=== PATIENT | female | born 1940 | race Caucasian/White ===

== ENCOUNTER 2016-05-15 22:25 | Observation (INO) | payer MEDICARE, MEDICAID ==
[~2016-05-15] VITALS: Ht 160 cm; Wt 59.1 kg
[~2016-05-15 22:25] MED LIST: ATEN100T PO; ATOR40TA16 PO; CYAN1000P IM; NIFE15TA PO
[2016-05-15 22:26] VITALS: PULSE 87; RESP 10; RESP 18; O2SAT 92
[2016-05-15 22:33] VITALS: BP 199/83; PULSE 83; RESP 28; O2SAT 92
[2016-05-15] MEDS ORDERED: SODIUM CHLORIDE 0.9% FLUSH 5 ML FLUSH IVF PRN (22:45)
[2016-05-15] MEDS ORDERED: methylPREDNISolone SOD SUCC 125 MG/2 ML VIAL IVP ONE (22:45)
[2016-05-15] MEDS ORDERED: ASPIRIN 81 MG CHEW TAB PO ONE (22:45)
[2016-05-15] MEDS ORDERED: SODIUM CHLORID 0.9% 500 ML INJ 500 ML IV ONE (22:45)
[2016-05-15] MEDS: RESP: ALBUTEROL 2.5 MG/IPRATROPIUM 0.5 MG NEB (SCH) INH ×2 (22:50→22:51)
[2016-05-15 23:04] VITALS: RESP 22; O2SAT 93
[2016-05-15 23:08] LABS: BLOOD GAS CARBOXYHEMOGLOBIN 1.1 % (0-4); BLOOD GAS HCO3 27 mmol/L (22-26); BLOOD GAS METHEMOGLOBIN 0.3 % (0-2); BLOOD GAS O2 HGB SATURATION 90 % (90-100); BLOOD GAS OXYGEN CONTENT 15.7 Vol % (12.0-20.0); BLOOD GAS PCO2 45 mmHg (38-42); BLOOD GAS PO2 60 mmHG (61-120); BLOOD GAS TOTAL HGB 12.4 G/DL (12.0-16.0); CRITICAL VALUE NO; DRAW SITE RT RADIAL; FIO2 21 %; NUMBER OF ARTERIAL PUNCTURES 1; OXYGEN DEVICE ROOM AIR; STAT YES; TEMP CORR TO 98.6; ULNAR PULSE PRESENT
--- NOTE | 2016-05-15 23:09 | PD ---
HPI Chief Complaint: Respiratory Distress Time Seen by Provider: 22:33 Travel History International Travel<30 days: No (mar 31, 2016; [email or web address] ) Contact w/Intl Traveler<30days: No Traveled to known affect area: No History of Present Illness HPI Patient is a 75-year-old female with history of hypertension and hyperlipidemia who presents to emergency room with complaints of shortness of breath as well as chest pain. Patient reports that she has been having increased shortness of breath since yesterday, reports that she has been wheezing and has had a productive cough. Patient denies any fevers or chills, nights history of COPD or asthma. Reports no history of smoking in the past. Patient reports that this afternoon, she began to have increased chest pain. Reports the chest pain is located to her substernal, reports that chest pain radiates to her left shoulder and her back. Patient reports that chest pain feels like a sharp and stabbing sensation, reports that chest pain is exacerbated by taking a deep breath. Patient denies diaphoresis, or palpitations or nausea or vomiting with symptoms. Reports no history of coronary disease or [place] in the past. Reports no history of chest pain in the past. Patient denies any sick contacts. Patient does admit reports that she did travel to [place] for 16 days and came home on March 23, 2016. Patient with no history of PE or DVT PFSH Past Medical History High Cholesterol: Yes Hypertension: Yes Past Surgical History Surgical History: No Previous Surgery Social History Alcohol Use: No Tobacco Use: No Substance Use: No Allergies-Medications (Allergen,Severity, Reaction): Coded Allergies: No Known Allergies (Unverified , 04/24/16) Reported Meds & Prescriptions Reported Meds & Active Scripts Active Reported Nifedical XL (Nifedipine) 60 Mg Tab 30 Mg PO DAILY Atenolol 100 Mg Tab 100 Mg PO DAILY Review of Systems General / Constitutional: No: Fever, Chills Cardiovascular: Positive: Chest Pain or Discomfort Respiratory: Positive: Cough, Shortness of Breath, Wheezing Physical Exam Narrative GENERAL: Mild distress SKIN: Warm and dry. HEAD: Atraumatic. Normocephalic. EYES: Pupils equal and round. No scleral icterus. No injection or drainage. ENT: No nasal bleeding or discharge. Mucous membranes pink and moist. NECK: Trachea midline. No JVD. CARDIOVASCULAR: Regular rate and rhythm. No murmur appreciated. RESPIRATORY: Patient with scattered wheezing bilaterally GASTROINTESTINAL: Abdomen soft, non-tender, nondistended. Hepatic and splenic margins not palpable. MUSCULOSKELETAL: No obvious deformities. No clubbing. No cyanosis. No edema. NEUROLOGICAL: Awake and alert. No obvious cranial nerve deficits. Motor grossly within normal limits. Normal speech. PSYCHIATRIC: Appropriate mood and affect; insight and judgment normal. Data Data Last Documented VS Vital Signs Date Time Temp Pulse Resp B/P Pulse Ox O2 Delivery O2 Flow Rate FiO2 05/16/16 00:03 96 22 183/88 93 Room Air Orders Electrocardiogram (05/15/16 22:40) B-Type Natriuretic Peptide (05/15/16 22:40) Ckmb (Isoenzyme) Profile (05/15/16 22:40) Complete Blood Count With Diff (05/15/16 22:40) Comprehensive Metabolic Panel (05/15/16 22:40) Magnesium (Mg) (05/15/16 22:40) Prothrombin Time / Inr (Pt) (05/15/16 22:40) Act Partial Throm Time (Ptt) (05/15/16 22:40) Troponin I (05/15/16 22:40) Lipase (05/15/16 22:40) Chest, Single Ap (05/15/16 22:40) Ecg Monitoring (05/15/16 22:40) Bilateral Bp Monitoring (05/15/16 22:40) Iv Access Insert/Monitor (05/15/16 22:40) Oximetry (05/15/16 22:40) Oxygen Administration (05/15/16 22:40) Aspirin Chew (Aspirin Chew) (05/15/16 22:45) Sodium Chloride 0.9% Flush (Ns Flush) (05/15/16 22:45) Sodium Chlorid 0.9% 500 Ml Inj (Ns 500 M (05/15/16 22:45) Arterial Blood Gas (Abg) (05/15/16 22:40) Influenzae A/B Antigen (05/15/16 22:40) Blood Culture (05/15/16 22:40) Methylprednisolone So Succ Inj (Solumedr (05/15/16 22:45) Albuterol-Ipratropium Neb (Duoneb Neb) (05/15/16 22:45) Ct Pulmonary Angiogram (05/16/16 ) Iohexol 350 Inj (Omnipaque 350 Inj) (05/16/16 00:51) Admit Order (Ed Use Only) (05/16/16 02:02) Labs Laboratory Tests Test 05/15/16 22:55 White Blood Count 7.4 TH/MM3 Red Blood Count 4.10 MIL/MM3 Hemoglobin 11.6 GM/DL Hematocrit 34.5 % Mean Corpuscular Volume 84.2 FL Mean Corpuscular Hemoglobin 28.2 PG Mean Corpuscular Hemoglobin 33.5 % Concent Red Cell Distribution Width 14.4 % Platelet Count 283 TH/MM3 Mean Platelet Volume 8.1 FL Neutrophils (%) (Auto) 64.2 % Lymphocytes (%) (Auto) 18.5 % Monocytes (%) (Auto) 11.0 % Eosinophils (%) (Auto) 5.9 % Basophils (%) (Auto) 0.4 % Neutrophils # (Auto) 4.8 TH/MM3 Lymphocytes # (Auto) 1.4 TH/MM3 Monocytes # (Auto) 0.8 TH/MM3 Eosinophils # (Auto) 0.4 TH/MM3 Basophils # (Auto) 0.0 TH/MM3 CBC Comment DIFF FINAL Differential Comment Prothrombin Time 10.6 SEC Prothromb Time International 1.0 RATIO Ratio Activated Partial 28.5 SEC Thromboplast Time Blood Gas Puncture Site RT RADIAL Blood Gas Patient Temperature 98.6 Blood Gas HCO3 27 mmol/L Blood Gas Base Excess 3.0 mmol/L Blood Gas Oxygen Saturation 90 % Arterial Blood pH 7.41 Arterial Blood Partial 45 mmHg Pressure CO2 Arterial Blood Partial 60 mmHG Pressure O2 Arterial Blood Oxygen Content 15.7 Vol % Arterial Blood 1.1 % Carboxyhemoglobin Arterial Blood Methemoglobin 0.3 % Blood Gas Hemoglobin 12.4 G/DL Oxygen Delivery Device ROOM AIR Blood Gas Inspired Oxygen 21 % Sodium Level 136 MEQ/L Potassium Level 4.1 MEQ/L Chloride Level 99 MEQ/L Carbon Dioxide Level 29.3 MEQ/L Anion Gap 8 MEQ/L Blood Urea Nitrogen 16 MG/DL Creatinine 0.66 MG/DL Estimat Glomerular Filtration 87 ML/MIN Rate Random Glucose 130 MG/DL Calcium Level 9.4 MG/DL Magnesium Level 2.2 MG/DL Total Bilirubin 0.3 MG/DL Aspartate Amino Transf 17 U/L (AST/SGOT) Alanine Aminotransferase 22 U/L (ALT/SGPT) Alkaline Phosphatase 119 U/L Total Creatine Kinase 83 U/L Troponin I LESS THAN 0.02 NG/ML Total Protein 8.6 GM/DL Albumin 3.9 GM/DL Lipase 201 U/L B-Type Natriuretic Peptide 67 PG/ML MDM Medical Decision Making Medical Screen Exam Complete: Yes Emergency Medical Condition: Yes Interpretation(s) EKG at 2244: Normal sinus at 83 beats for minute, QT/QTC 361/400, no acute ST-T wave changes Vital Signs Date Time Temp Pulse Resp B/P Pulse Ox O2 Delivery O2 Flow Rate FiO2 05/15/16 22:33 83 28 199/83 92 05/15/16 22:26 87 18 92 Differential Diagnosis PE, pneumonia, asthma exacerbation, acute bronchitis, ACS, arrhythmia, electrolyte abnormality Narrative Course Patient is a 75-year-old female who presents to emergency room with complaints of shortness of breath and chest pain. She had onset of shortness of breath yesterday, reports that her shortness of breath associated with wheezing and productive cough. Reports that today, she began to have increased chest pain around noon time. Chest pain was located to her substernal, reports that it radiates her shoulder and her back. Pain is sharp and stabbing in nature, associated with shortness of breath. Chest pain is worse with taking a deep breath. On exam, patient is having increased wheezing, nebs as well as steroids ordered. Patient is complaining of chest pain, EKG ordered. EKG with normal sinus rhythm with no acute ST or T-wave changes. Patient was placed on a hand shaper. Labs as well as x-ray chest ordered. Vital Signs Date Time Temp Pulse Resp B/P Pulse Ox O2 Delivery O2 Flow Rate FiO2 05/15/16 22:33 83 28 199/83 92 05/15/16 22:26 87 18 92 Patient is hypoxic with a pulse ox of 92%, this could be secondary to a pneumonia versus acute bronchitis, pulmonary embolism is in the differential as she recently returned from [place] on March 31. CT ordered to evaluate for possible PE. CT of the chest negative for PE, patient with most likely acute bronchitis. Patient with decreased wheezing after neb treatments. Will obs PATIENT to chest pain unit for chest pain. Scripts for steroids and pro-air albuterol ordered for patient Diagnosis Primary Impression: Chest pain Qualified Code: R07.9 - Chest pain, unspecified type Additional Impression: Acute bronchitis Qualified Code: J20.9 - Acute bronchitis, unspecified organism Patient Instructions: General Instructions Med/Other Pt SpecificInfo: Prescription(s) given Scripts Albuterol 8.5 GM Inh (Proair Hfa 8.5 GM Inh)90 Mcg/Act Aer2 Puff INH Q4-6H PRN ( SHORTNESS OF BREATH) #1 INHALER Ref 0 108 mcg/actuation Prov:Glenys Chatman DO 05/16/16 Prednisone 20 Mg Tab20 Mg PO BID 5 Days Ref 0 Prov:Glenys Chatman DO 05/16/16 Glenys Chatman DO May 15, 2016 23:09
[2016-05-15 23:24] LABS: AUTOMATED NEUTROPHIL # 4.8 TH/MM3 (1.8-7.7); BASOPHIL % 0.4 % (0.0-2.0); EOSINOPHIL # 0.4 TH/MM3 (0-0.4); EOSINOPHIL % 5.9 % (0.0-4.0); HEMATOCRIT 34.5 % (35.0-46.0); HEMO FLAGS DIFF FINAL; LYMPH % 18.5 % (9.0-44.0); LYMPHOCYTE # 1.4 TH/MM3 (1.0-4.8); MEAN CELL VOLUME 84.2 FL (80.0-100.0); MEAN CORPUSCULAR HEMOGLOBIN 28.2 PG (27.0-34.0); MEAN CORPUSCULAR HGB CONC 33.5 % (32.0-36.0); NEUT % 64.2 % (16.0-70.0); PLATELET COUNT 283 TH/MM3 (150-450); RED CELL DISTRIBUTION WIDTH 14.4 % (11.6-17.2); WHITE BLOOD COUNT 7.4 TH/MM3 (4.0-11.0)
[2016-05-15 23:34] LABS: APTT (PATIENT) 28.5 SEC (24.3-30.1); PROTHROMBIN TIME - PATIENT 10.6 SEC (9.8-11.6)
--- NOTE | 2016-05-15 23:42 | RADRPT ---
EXAM DATE/TIME: 05/15/2016 23:00 [facility] COMPARISON: No previous studies available for comparison. INDICATIONS : Chest pain. MEDICAL HISTORY : None. SURGICAL HISTORY : None. ENCOUNTER: Initial ACUITY: 1 day PAIN SCORE: 0/10 LOCATION: Bilateral chest FINDINGS: Single AP view of the chest. The lungs are clear. Cardiomediastinal silhouette within normal limits. No evidence of pleural effusion or pneumothorax. CONCLUSION: No acute cardiopulmonary disease identified. Darien James MD on May 15, 2016 at 23:30 Board Certified Radiologist. This report was verified electronically.
[2016-05-15 23:50] LABS: ALT (GPT) 22 U/L (10-53); ANION GAP 8 MEQ/L (5-15); AST (GOT) 17 U/L (15-37); BICARBONATE 29.3 MEQ/L (21.0-32.0); BLOOD UREA NITROGEN 16 MG/DL (7-18); CHLORIDE 99 MEQ/L (98-107); GLOMERULAR FILTRATION RATE 87 ML/MIN (>89); MAGNESIUM 2.2 MG/DL (1.5-2.5); POTASSIUM 4.1 MEQ/L (3.5-5.1); SODIUM (NA) 136 MEQ/L (136-145)
[2016-05-15 23:53] LABS: ALKALINE PHOSPHATASE 119 U/L (45-117); TOTAL BILIRUBIN ADULT 0.3 MG/DL (0.2-1.0)
[2016-05-15 23:55] LABS: CREATINE KINASE 83 U/L (26-192)
[2016-05-16 00:03] VITALS: BP 183/88; PULSE 96; RESP 22; O2SAT 93
[2016-05-16] MEDS ORDERED: IOHEXOL 350 MG/ML 10 ML VIAL (for RAD DIAG) IV ONE (00:51)
--- NOTE | 2016-05-16 01:12 | RADRPT ---
EXAM DATE/TIME: 05/16/2016 00:46 [facility] COMPARISON: No previous studies available for comparison. INDICATIONS : Short of breath and midline chest pain. IV CONTRAST: 70 cc Omnipaque 350 (iohexol) IV RADIATION DOSE: 23.39 CTDIvol (mGy) MEDICAL HISTORY : Hypertension. SURGICAL HISTORY : None. ENCOUNTER: Initial ACUITY: 2 days PAIN SCALE: 4/10 LOCATION: chest TECHNIQUE: Volumetric scanning of the chest was performed using a pulmonary embolism protocol MIP images were re constructed. Using automated exposure control and adjustment of the mA and/or kV according to patien t size, radiation dose was kept as low as reasonably achievable to obtain optimal diagnostic quality images. FINDINGS: PULMONARY ARTERIES: No filling defects are seen in the pulmonary arteries through the segmental level. LUNGS: Mild patchy opacity in the right lower lobe indicating atelectasis. Calcified granuloma in the right lower lobe. PLEURAE: There is no pleural thickening or pleural effusion. MEDIASTINUM: Enlarged precarinal lymph node measuring 2.0 x 1.6 cm. Aortic calcification and coronary artery calci fication noted. MUSCULOSKELETAL: Degenerative findings of the thoracic spine. MISCELLANEOUS: The visualized upper abdominal organs demonstrate no acute abnormality. CONCLUSION: 1. No evidence of pulmonary embolus. 2. Old granulomatous disease. 3. Nonspecific mildly enlarged precarinal lymph node measuring 2.0 x 1.6 cm. Darien James MD on May 16, 2016 at 1:06 Board Certified Radiologist. This report was verified electronically.
[2016-05-16] MEDS ORDERED: ASPIRIN 325 MG TAB PO ONE (01:30)
[2016-05-16] MEDS ORDERED: ALBUAER3 INH (02:05)
[2016-05-16] MEDS ORDERED: PRED20 PO (02:05)
[2016-05-16] MEDS ORDERED: SODIUM CHLORIDE 0.9% FLUSH 5 ML FLUSH IVF PRN (02:15)
[2016-05-16 03:18] LABS: CREATINE KINASE 79 U/L (26-192)
[2016-05-16 06:38] LABS: CREATINE KINASE 73 U/L (26-192)
[2016-05-16 08:09] VITALS: BP 150/72
[2016-05-16] MEDS ORDERED: RESP: ALBUTEROL 2.5 MG/IPRATROPIUM 0.5 MG NEB (SCH) INH ONE (08:30)
[2016-05-16] MEDS ORDERED: RESP: ALBUTEROL 2.5 MG/IPRATROPIUM 0.5 MG NEB (PRN) INH (08:30)
[2016-05-16] MEDS ORDERED: amLODIPine BESYLATE 5 MG TAB PO ONE (08:30)
[2016-05-16 09:00] VITALS: BP 155/67; PULSE 88; RESP 16; TEMP 98; O2SAT 94
[2016-05-16] MEDS ORDERED: NIFEdipine 60 MG SUSTAINED RELEASE TAB PO SCH (09:00)
[2016-05-16] MEDS ORDERED: predniSONE 20 MG TAB PO SCH (09:00)
[2016-05-16] MEDS ORDERED: SODIUM CHLORIDE 0.9% FLUSH 5 ML FLUSH IVF SCH (09:00)
[2016-05-16 10:00] VITALS: BP 155/67; PULSE 86; RESP 16; O2SAT 98
[2016-05-16 11:00] VITALS: BP 148/66; PULSE 84; RESP 16; O2SAT 98
--- NOTE | 2016-05-16 11:50 | HHI.HP ---
HPI Primary Care Physician No Primary Care Physician Chief Complaint Chest pain History of Present Illness This is a 75-year-old [place]-speaking female that presents to ED with a complaint of chest discomfort. She has requested that her daughter translate for her. She also short of breath. It began yesterday. She also has a nonproductive cough. Denies fevers or chills. She really cannot describe how long the discomfort lasts however the discomfort is not there at this time. It was sharp and stabbing in nature. Denies diaphoresis nausea. She has recently returned from a trip to [facility] on March 23. Review of Systems General: Patient denies fevers, chills recent, and recent travel HEENT: Patient denies headache, sore throat, difficulty swallowing. Cardiovascular: Has the chest discomfort as mentioned above. Denies sensation of heart beating rapidly or irregularly. No syncope. Denies diaphoresis. Respiratory: Patient has been a little short of breath. No inspirational chest discomfort. She has had a nonproductive cough. Her daughter noticed a little bit of a wheeze. GI: Patient denies nausea, vomiting, diarrhea, abdominal pain, bloody stools. Musculoskeletal: Patient denies joint pain or edema. Denies calf pain or edema. Neurovascular: Patient denies numbness, tingling, weakness in extremities. Denies headache. Endocrine: Denies polyuria and polydipsia. Hematologic: Denies easy bruising. Skin: Denies rash or itching. Past Family Social History Allergies: Coded Allergies: No Known Allergies (Unverified , 04/24/16) Past Medical History Hyperlipidemia however she is on a medication to treat it. Hypertension. Denies diabetes and CAD. Past Surgical History Noncontributory. Reported Medications Reported Meds & Active Scripts Active Proair Hfa 8.5 GM Inh (Albuterol Sulfate) 90 Mcg/Act Aer 2 Puff INH Q4-6H PRN 108 mcg/actuation Prednisone 20 Mg Tab 20 Mg PO BID 5 Days Reported Atenolol 100 Mg Tab 100 Mg PO DAILY Active Ordered Medications Current Medications Medications (Trade) Dose Ordered Sig/Emma Route Start Time Stop Time Status Last Admin (NS Flush) 2 ml UNSCH PRN IVF 05/16/16 02:15 (NS Flush) 2 ml BID IVF 05/16/16 09:00 05/16/16 08:52 (Deltasone) 20 mg BID PO 05/16/16 09:00 05/16/16 09:52 Family History Cannot recall family history of CAD. Social History Patient does not smoke, drink alcohol, or use illicit drugs. Physical Exam Vital Signs Vital Signs Date Time Temp Pulse Resp B/P Pulse Ox O2 Delivery O2 Flow Rate FiO2 05/16/16 09:00 98.0 88 16 155/67 94 Room Air 05/16/16 08:20 88 16 94 Room Air 05/16/16 08:09 150/72 95 05/16/16 00:03 96 22 183/88 93 Room Air 05/15/16 23:05 Aerosol Mask 05/15/16 23:04 22 93 Aerosol Mask 05/15/16 23:04 93 Aerosol Mask 05/15/16 22:33 83 28 199/83 92 05/15/16 22:26 87 18 92 Physical Exam GENERAL: This is a well-nourished, well-developed patient, in no apparent distress. Patient speaks in clear complete sentences. Patient is pleasant. HEENT: Head is atraumatic and normocephalic. Neck is supple without lymphadenopathy and trachea is midline. No JVD or carotid bruits. CARDIOVASCULAR: Regular rate and rhythm without murmurs, gallops, or rubs. RESPIRATORY: There are some scattered wheezing bilaterally. No rales or rhonchi. Chest wall is nontender. No use of accessory muscles. GASTROINTESTINAL: Abdomen is nontender, nondistended. Abdomen soft. No obvious pulsatile mass or bruit. No CVA tenderness. Strong femoral pulses bilaterally. Normal bowel sounds in all quadrants. MUSCULOSKELETAL: Patient is moving upper and lower extremities freely. No calf tenderness or edema, no Homans sign. Strong pulses in upper and lower extremities. NEUROLOGICAL: Patient is alert and oriented. Cranial nerves 2-12 are grossly intact. No focal deficits and speech is clear. SKIN: No rash and turgor is normal. Laboratory Laboratory Tests Test 05/15/16 05/16/16 05/16/16 22:55 02:37 05:25 White Blood Count 7.4 Red Blood Count 4.10 Hemoglobin 11.6 Hematocrit 34.5 Mean Corpuscular Volume 84.2 Mean Corpuscular Hemoglobin 28.2 Mean Corpuscular Hemoglobin 33.5 Concent Red Cell Distribution Width 14.4 Platelet Count 283 Mean Platelet Volume 8.1 Neutrophils (%) (Auto) 64.2 Lymphocytes (%) (Auto) 18.5 Monocytes (%) (Auto) 11.0 Eosinophils (%) (Auto) 5.9 Basophils (%) (Auto) 0.4 Neutrophils # (Auto) 4.8 Lymphocytes # (Auto) 1.4 Monocytes # (Auto) 0.8 Eosinophils # (Auto) 0.4 Basophils # (Auto) 0.0 CBC Comment DIFF FINAL Differential Comment Prothrombin Time 10.6 Prothromb Time International 1.0 Ratio Activated Partial 28.5 Thromboplast Time Blood Gas Puncture Site RT RADIAL Blood Gas Patient Temperature 98.6 Blood Gas HCO3 27 Blood Gas Base Excess 3.0 Blood Gas Oxygen Saturation 90 Arterial Blood pH 7.41 Arterial Blood Partial 45 Pressure CO2 Arterial Blood Partial 60 Pressure O2 Arterial Blood Oxygen Content 15.7 Arterial Blood 1.1 Carboxyhemoglobin Arterial Blood Methemoglobin 0.3 Blood Gas Hemoglobin 12.4 Oxygen Delivery Device ROOM AIR Blood Gas Inspired Oxygen 21 Sodium Level 136 Potassium Level 4.1 Chloride Level 99 Carbon Dioxide Level 29.3 Anion Gap 8 Blood Urea Nitrogen 16 Creatinine 0.66 Estimat Glomerular Filtration 87 Rate Random Glucose 130 Calcium Level 9.4 Magnesium Level 2.2 Total Bilirubin 0.3 Aspartate Amino Transf 17 (AST/SGOT) Alanine Aminotransferase 22 (ALT/SGPT) Alkaline Phosphatase 119 Total Creatine Kinase 83 79 73 Troponin I LESS THAN 0.02 LESS THAN 0.02 LESS THAN 0.02 Total Protein 8.6 Albumin 3.9 Lipase 201 B-Type Natriuretic Peptide 67 Date/Time Procedure Status Source Growth 05/15/16 22:58 Aerobic Blood Culture - Preliminary Resulted Blood Peripheral NO GROWTH IN 1 DAY 05/15/16 22:58 Anaerobic Blood Culture - Preliminary Resulted Blood Peripheral NO GROWTH IN 1 DAY Result Diagram: 05/15/16 2255 05/15/16 2255 Imaging Last [address] Angiography 05/16/16 0000 Signed Impressions: Service Date/Time: Monday, May 16, 2016 00:46 - CONCLUSION: 1. No evidence of pulmonary embolus. 2. Old granulomatous disease. 3. Nonspecific mildly enlarged precarinal lymph node measuring 2.0 x 1.6 cm. Darien James MD Chest X-Ray 05/15/16 2240 Signed Impressions: Service Date/Time: Sunday, May 15, 2016 23:00 - CONCLUSION: No acute cardiopulmonary disease identified. Darien James MD Course EKGs have sinus rhythm without significant ST segment depressions or elevations. Assessment and Plan Assessment and Plan * Chest pain: Patient had serial cardiac enzymes and EKGs for ruling out purposes. She has been evaluated by Dr. De Jesus cardiology and the chest pain center. He'll undergo a Lexiscan. She will likely be discharged home with instructions to follow-up with prior care physician if her stress test were to be nonischemic. * Hypertension: We will discontinue the nifedipine and replaced with 10 mg of amlodipine. She will continue the atenolol. Cordell Vasquez May 16, 2016 11:50
[2016-05-16] MEDS ORDERED: REGADENOSON INJ 0.4 MG/5 ML SYR ONE (12:35)
--- NOTE | 2016-05-16 14:31 | RADRPT ---
EXAM DATE/TIME: 05/16/2016 12:07 [facility] COMPARISON: No previous studies available for comparison. INDICATIONS : Substernal chest pain radiating to left shoulder. Angina. DOSE: 26.1 mCi Tc99m Myoview at stress. 8.1 mCi Tc99m Myoview at rest. 0.4 mg Lexiscan STRESS SYMPTOMS: Dizziness. EJECTION FRACTION: > 70% MEDICAL HISTORY : Hypertension. Hypercholesterolemia. SURGICAL HISTORY : Cyst on right breast removed. ENCOUNTER: Initial ACUITY: 1 day PAIN SCALE: 3/10 LOCATION: Substernal chest TECHNIQUE: The patient underwent pharmacologic stress with infusion of prescribed dose. Continuous ECG tracing was monitored during stress. Gated SPECT imaging was performed after stress and conventional SPECT i maging was performed at rest. The examination was performed on a SPECT/CT scanner, both attenuation and non-corrected datasets were reviewed. FINDINGS: DISTRIBUTION: The maximum perfused segment at stress is in the septal wall. PERFUSION STUDY: The pattern of perfusion at stress is within normal limits. GATED STUDY: There is intact wall motion and thickening without hypokinetic or dyskinetic segments. CONCLUSION: No areas of ischemia are seen. RISK CATEGORY: Low (<1% Annual Mortality Rate) Aston Navarro MD on May 16, 2016 at 14:26 Board Certified Radiologist. This report was verified electronically.
[2016-05-16] MEDS ORDERED: AMLO10TA2 PO (14:35)
--- NOTE | 2016-05-16 14:36 | HHI.DCPOC ---
Discharge Care Plan Diagnosis: (1) Chest pain (2) Hypertension (3) Acute bronchitis Goals to Promote Your Health * To prevent worsening of your condition and complications * To maintain your health at the optimal level Directions to Meet Your Goals Take your medications as prescribed Follow your dietary instruction Follow activity as directed Keep your appointments as scheduled Take your immunizations and boosters as scheduled If your symptoms worsen call your PCP, if no PCP go to Urgent Care Center or Emergency Room Smoking is Dangerous to Your Health. Avoid second hand smoke Call the 24-hour hour crisis hotline for domestic abuse at Cordell Vasquez May 16, 2016 14:36
--- NOTE | 2016-05-16 19:46 | EKG ---
Date Performed: 05/16/2016 Time Performed: 05:55:07 PTAGE: 75 years EKG: Sinus rhythm NORMAL ECG PREVIOUS TRACING : 05/16/2016 02.21 Compared to prior tracing no significant change DOCTOR: Stephany Santa Interpretating Date/Time 05/16/2016 19:45:32
--- NOTE | 2016-05-16 19:52 | EKG ---
Date Performed: 05/16/2016 Time Performed: 02:21:14 PTAGE: 75 years EKG: Sinus rhythm MINIMAL ST DEPRESSION BORDERLINE ECG PREVIOUS TRACING : 05/15/2016 22.44 Compared to prior tracing no significant change DOCTOR: Stephany Santa Interpretating Date/Time 05/16/2016 19:51:15
--- NOTE | 2016-05-16 19:58 | EKG ---
Date Performed: 05/15/2016 Time Performed: 22:44:59 PTAGE: 75 years EKG: Sinus rhythm NORMAL ECG PREVIOUS TRACING : 05/15/2016 22.44 DOCTOR: Stephany Santa Interpretating Date/Time 05/16/2016 19:56:28
--- NOTE | 2016-05-17 21:16 | TR ---
Date Performed: 05/16/2016 Time Performed: 12:36:11 DOCTOR: Adrianna De Jesus DRUG LIST: CLINICAL HISTORY: ANGINA REASON FOR TEST: Angina REASON FOR ENDING: OBSERVATION: CONCLUSION: Lexiscan stress test was performed under standard four minute protocol. Radionuclid e was injected one minute prior to ending the test. No electrocardiographic abormalities were present to suggest ischemia. Nuclear imaging and interpretation are pending. COMMENTS:
[2016-06-21] MEDS ORDERED: ATOR20TA15 PO (10:07)
[2016-06-21] MEDS ORDERED: ALEN1TAB48 PO (10:07)
[2016-06-21] MEDS ORDERED: AMLO10TA2 PO (10:07)
[2016-06-21] MEDS ORDERED: ERGO1CAP10 PO (10:09)
[2016-06-21] MEDS ORDERED: CLON.1 PO (10:39)
[2016-07-03] MEDS ORDERED: ATOR40TA16 PO (14:46)
== END 2016-05-16 18:28 | disposition home or self-care (01) ==
LOC: NEPE 22:25 → NEDA 05-16 02:04 → NEDH 05-16 07:52 → NEPGCP 05-16 14:00
PROVIDERS: ADMIT Internal Medicine Interventional Cardiology; ATTEND Internal Medicine Interventional Cardiology
DX: R07.9 Chest pain, unspecified (principal); J20.9 Acute bronchitis, unspecified; E78.5 Hyperlipidemia, unspecified; I10 Essential (primary) hypertension; E78.00 Pure hypercholesterolemia, unspecified
CPT/HCPCS: 36600; 71010; 71275; 78452; 80053; 82550; 82805; 83690; 83735; 83880; 84484; 85025; 85610; 85730; 87040; 93005; 93017; 94640; 94664; 96361; 96374; 99285; A9502; G0378; J2785; J2930; J7040; J7512; Q9967